=== PATIENT | male | born 1950 | race American Indian/Alaskan Native ===

== ENCOUNTER 2016-04-22 08:48 | Outpatient (CLI) | payer BC ==
[2016-04-22 09:13] LABS: Basophils % (Auto) 0.4 % (0.0-1.8); Hematocrit 37.6 % (35.5-45.6); Hemoglobin 12.4 gm/dl (11.8-15.2); Mean Corpuscular HGB Conc 33 % (32-34); Mean Corpuscular Hemoglobin 27 pg (28-32); Mean Corpuscular Volume 82 fl (84-94); Platelet Count 189 K/mm3 (140-440); White Blood Count 9.3 K/mm3 (4.5-11.0)
[2016-04-22 09:26] LABS: Alanine Aminotransferase 22 units/L (7-56); Albumin 4.3 g/dL (3.9-5); Albumin/Globulin Ratio 1.2 %; Alkaline Phosphatase 73 units/L (35-129); Anion Gap 17 mmol/L; BUN/Creatinine Ratio 8.57; Bilirubin,Total 0.4 mg/dL (0.1-1.2); Blood Urea Nitrogen 12 mg/dL (9-20); Calcium 8.9 mg/dL (8.4-10.2); Carbon Dioxide 27 mmol/L (22-30); Chloride 98.7 mmol/L (98-107); Cholesterol 127 mg/dL (50-199); Glucose 166 mg/dL (75-100); HDL Cholesterol 39 mg/dL (40-59); LDL Cholesterol,Direct 71 mg/dL (50-130); Potassium 4.2 mmol/L (3.6-5.0); Sodium 138 mmol/L (137-145); Total Protein 7.9 g/dL (6.3-8.2); Triglycerides 88 mg/dL (2-149)
== END 2016-04-22 08:49 | disposition home or self-care (01) ==
LOC: LAB 08:48
PROVIDERS: ATTEND Internal Medicine
DX: E11.9 Type 2 diabetes mellitus without complications (principal); I10 Essential (primary) hypertension; E78.2 Mixed hyperlipidemia
CPT/HCPCS: 36415; 80053; 80061; 82043; 83036; 85025

== ENCOUNTER 2017-02-24 14:53 | Inpatient (IN) | payer BC, MEDICARE ==
[2017-02-24 15:25] LABS: Basophils % (Auto) 0.3 % (0.0-1.8); Eosinophils % (Auto) 2.8 % (0.0-4.3); Hematocrit 39.8 % (35.5-45.6); Hemoglobin 12.9 gm/dl (11.8-15.2); Mean Corpuscular HGB Conc 32 % (32-34); Mean Corpuscular Hemoglobin 26 pg (28-32); Mean Corpuscular Volume 82 fl (84-94); Platelet Count 193 K/mm3 (140-440); Red Blood Count 4.88 M/mm3 (3.65-5.03); Red Cell Distribution Width 14.1 % (13.2-15.2); White Blood Count 9.1 K/mm3 (4.5-11.0)
[2017-02-24 15:45] LABS: Anion Gap 19 mmol/L; BUN/Creatinine Ratio 19; Blood Urea Nitrogen 23 mg/dL (9-20); Calcium 9.1 mg/dL (8.4-10.2); Carbon Dioxide 25 mmol/L (22-30); Chloride 93.1 mmol/L (98-107); Glucose 336 mg/dL (75-100); Potassium 4.1 mmol/L (3.6-5.0); Sodium 133 mmol/L (137-145)
--- NOTE | 2017-02-24 18:48 | Emergency Department Report ---
ED Chest Pain HPI - General Chief Complaint: Syncope Stated Complaint: ABNORMAL EKG Time Seen by Provider: 02/24/17 18:33 Source: patient Mode of arrival: Ambulatory Limitations: No Limitations - History of Present Illness Initial Comments: Patient initially with pre-syncope episode at work at which time EMS was called. When they arrived he felt well and did not go to ED. He then went to his PCP who did an EKG which showed new T waves in lateral leads. He was sent here subsequently. No current symptoms but has HTN, HL, DM. No history of tobacco, aspirin use. No FamHx with early CAD. -: This morning Onset: during exertion Pain Location: substernal Pain Radiation: none Severity: moderate Quality: tightness Consistency: now resolved Improves With: rest Worsens With: nothing Context: other (Recent poor sleep) re: diaphoresis Other Symptoms: syncope Treatments Prior to Arrival: none - Related Data Allergies Allergy/AdvReac Type Severity Reaction Status Date / Time No Known Allergies Allergy Unverified 02/24/17 15:08 Heart Score - HEART Score History: Slightly suspicious EKG: Non-specific Age: > 65 Risk factors: > 3 risk factors or hx of atherosclerotic disease Troponin: < normal limit HEART Score: 5 ED Review of Systems ROS: Stated complaint: ABNORMAL EKG Other details as noted in HPI Constitutional: malaise, weakness. denies: chills, fever Eyes: denies: eye pain, eye discharge, vision change ENT: denies: ear pain, throat pain Respiratory: denies: cough, shortness of breath, wheezing Cardiovascular: chest pain, syncope. denies: palpitations Endocrine: no symptoms reported Gastrointestinal: denies: abdominal pain, nausea, diarrhea Genitourinary: denies: urgency, dysuria Musculoskeletal: denies: back pain, joint swelling, arthralgia Skin: denies: rash, lesions Neurological: denies: headache, weakness, paresthesias Psychiatric: denies: anxiety, depression Hematological/Lymphatic: denies: easy bleeding, easy bruising ED Past Medical Hx - Past Medical History Hx Hypertension: Yes Hx Diabetes: Yes - Surgical History Past Surgical History?: No - Social History Smoking Status: Never Smoker Substance Use Type: None ED Physical Exam - General Limitations: No Limitations General appearance: alert, in no apparent distress - Head Head exam: Present: atraumatic, normocephalic - Eye Eye exam: Present: normal appearance - ENT ENT exam: Present: mucous membranes moist - Neck Neck exam: Present: normal inspection - Respiratory Respiratory exam: Present: normal lung sounds bilaterally. Absent: respiratory distress - Cardiovascular Cardiovascular Exam: Present: regular rate, normal rhythm. Absent: systolic murmur, diastolic murmur, rubs, gallop - GI/Abdominal GI/Abdominal exam: Present: soft, normal bowel sounds - Rectal Rectal exam: Present: deferred - Extremities Exam Extremities exam: Present: normal inspection - Back Exam Back exam: Present: normal inspection - Neurological Exam Neurological exam: Present: alert, oriented X3 - Psychiatric Psychiatric exam: Present: normal affect, normal mood - Skin Skin exam: Present: warm, dry, intact, normal color. Absent: rash ED Course Vital Signs 02/24/17 02/24/17 02/24/17 15:04 17:24 17:30 Temperature 99 F Pulse Rate 65 68 60 Respiratory 20 13 18 Rate Blood Pressure 136/76 137/85 O2 Sat by Pulse 99 99 Oximetry 02/24/17 02/24/17 02/24/17 17:45 18:00 18:15 Temperature Pulse Rate 59 L 52 L 61 Respiratory 18 13 19 Rate Blood Pressure 134/87 134/87 O2 Sat by Pulse Oximetry 02/24/17 02/24/17 02/24/17 18:31 18:45 19:00 Temperature Pulse Rate 70 58 L 59 L Respiratory 13 18 11 L Rate Blood Pressure 135/87 135/86 131/86 O2 Sat by Pulse Oximetry PATTI score - Patti Score Age > 65: (1) Yes Aspirin use within the Past 7 Days: (0) No 3 or more CAD Risk Factors: (1) Yes 2 or more Angina events in past 24 hrs: (0) No Known CAD with more than 50% Stenosis: (0) No Elevated Cardiac Markers: (0) No ST Deviation Greater than 0.5mm: (0) No PATTI Score: 2 ED Medical Decision Making - Lab Data Result diagrams: 02/24/17 15:15 02/24/17 15:10 Unremarkable labs - EKG Data -: EKG Interpreted by Dc EKG shows normal: sinus rhythm, axis, intervals, QRS complexes, ST-T waves (T wave inversion in I and aVL, V4- V6) Rate: normal - EKG Data Interpretation: other (Abnormal T-wave inversion in anteriorolateral leads.) - Medical Decision Making Patient with Heart Score of 5 with no history of stress test or heart cath. Will have admitted for ACS stratification. Critical care attestation.: If time is entered above; I have spent that time in minutes in the direct care of this critically ill patient, excluding procedure time. ED Disposition Clinical Impression: Abnormal EKG Syncope Qualifiers: Syncope type: unspecified Qualified Code(s): R55 - Syncope and collapse Disposition: OP ADMIT IP TO THIS HOSP Is pt being admited?: Yes Does the pt Need Aspirin: Yes Condition: Good Instructions: Syncope (ED) Referrals: SCOTTIE IRVIN MD [Staff Physician] - 3-5 Days Time of Disposition: 19:24
[2017-02-24] MEDS ORDERED: BABY ASPIRIN PO ONE (19:25)
[2017-02-24] MEDS ORDERED: TYLENOL PO PRN (20:39)
[2017-02-24] MEDS ORDERED: ZOFRAN IV PRN (20:39)
[2017-02-24] MEDS ORDERED: D50W (25GM) Vial IV PRN (20:44)
--- NOTE | 2017-02-24 21:47 | Cat Scan Report ---
FINAL REPORT PROCEDURE: CT HEAD/BRAIN WO CON TECHNIQUE: Computerized tomography of the head was performed without contrast material. HISTORY: SYNCOPE COMPARISON: No prior studies are available for comparison. FINDINGS: Brain: There is no evidence of intracranial hemorrhage. No parenchymal hemorrhage is seen. No mass lesions or mass effect is identified. No abnormal extra-axial fluid collections or masses are seen. Small old lacunar infarct visualized near the genu of the internal capsule on the left. There is some decreased density seen in the periventricular white matter without mass effect. This is fairly symmetric and does not exhibit any mass effect consistent with gliosis probably on the basis of microvascular disease or white matter changes of aging. Ventricles: The ventricles, sulcal pattern and fissures are prominent consistent with atrophy. Bones: No evidence of acute fracture. Paranasal sinuses: Visualized portions appear clear. Mastoid air cells: clear IMPRESSION: There is evidence of mild atrophy and gliosis. Small old lacunar infarct visualized genu left internal capsule. No acute intracranial abnormalities are identified.
--- NOTE | 2017-02-24 22:39 | History and Physical Report ---
CHIEF COMPLAINT: Syncopal attack. HISTORY OF PRESENTING ILLNESS: The patient is a 66-year-old male who said he was having some abdominal discomfort earlier on this morning associated with diaphoresis and then went to work and stood off and was completely unaware of what was going on around him and sweating profusely and the coworkers brought a seat and he sat down and did not remember what happened, then later on the patient said that he became aware of the environment. He denied history of chest pain. Denied history of fever or chills. Denied history of nausea or vomiting and also denied history of shortness of breath and was brought to the Emergency Room. PAST MEDICAL HISTORY: Pertinent for diabetes mellitus. Also, the patient has past history of hypertension and hypercholesterolemia. PAST SURGICAL HISTORY: Unremarkable. FAMILY HISTORY: Family history is noncontributory. SOCIAL HISTORY: The patient does not smoke, does not drink alcohol, and does not use illicit drugs. MEDICATIONS: The patient's home medications are not known at this time. ALLERGIES: There are no known drug allergies. REVIEW OF SYSTEMS: CONSTITUTIONAL: There is no fever, no chills. Diaphoresis is present. HEENT: There is no headache or sore throat. CARDIOVASCULAR: There is no chest pain or orthopnea. RESPIRATORY: There is no shortness of breath or cough. GASTROINTESTINAL: There is abdominal discomfort, but no nausea, no vomiting, no diarrhea or constipation. NEUROLOGICAL: Syncopal episode with period of unresponsiveness noted. MUSCULOSKELETAL: There is no joint pain or swelling. DERMATOLOGICAL: There is no skin rash or itching. GENITOURINARY: There is no dysuria, hematuria, or flank pain. Rest of system review is normal. PHYSICAL EXAMINATION: GENERAL: At the time of exam, the patient was found to be alert, oriented x 3 and not in acute distress. VITAL SIGNS: Shows normal temperature with normal pulse , respirations 11, blood pressure 131/86, and normal O2 sat on room air. HEENT: Showed pupils to be equal, round, reactive to light and accommodating. Extraocular muscles are intact. NECK: Supple with no JVD or carotid bruits. CARDIOVASCULAR: Showed normal first and second heart sounds with no gallops or murmurs. RESPIRATORY: Showed good air entry on both sides of the lungs with no abnormal breath sounds. GASTROINTESTINAL: Shows abdomen to be full, soft, nontender with no organomegaly or rigidity. NEUROLOGICAL: Neuro exam sows no focal deficits. MUSCULOSKELETAL: Show no joint swelling or tenderness. DERMATOLOGICAL: Shows no skin rash. GENITOURINARY: Showing no costovertebral angle tenderness. PERTINENT LABORATORY DATA AND IMAGING STUDIES: The patient has CBC done that shows normal white count, normal hemoglobin, normal hematocrit with unremarkable CBC differential. The patient's chemistry shows slight decrease in sodium of 133, normal potassium level, low chloride level of 93.1, slightly elevated BUN of 23 with normal creatinine, and normal GFR of greater than 60. The patient's blood glucose was elevated with a value of 336. Cardiac enzymes showed 2 levels of troponin to be normal. IMAGING STUDIES: No imaging studies were done on the patient. DIAGNOSES: 1. Syncope. 2. Hyperglycemia. PLAN: The patient will be admitted to medical floor on telemetry. We will have cardiac enzymes checked q.6h. x 1 more level. The patient will have stat CT of the head without contrast done this night and the result will be called to the hospitalist pulmonologist. The patient will have Lexiscan stress test done in the morning and will be n.p.o. for the stress test to be done in the morning of 02/25/2017. Also, the patient will have bilateral carotid Doppler done in the morning and will be on oxygen by nasal cannula at 2 liters per minute. The patient will also be on IV Zofran 4 mg every 6 hours for nausea and vomiting, and be on aspirin after the result of the CT scan is known. The patient will have Accu-Chek before meals and at bedtime followed by low-dose sliding scale using regular insulin coverage. Please note that the patient's EKG showed an inverted T-wave in the lateral and the anterior leads according to the primary care doctor's report. The EKG was done when the patient visited the primary care doctor for the syncopal attack. Further management of the patient's condition will be dependent on the result of the CT scan of the head, the carotid Doppler and the stress test that will be done tomorrow. JOB# [id number] [facility]/DRISS GALDAMEZ
[2017-02-25 02:20] LABS: Creatine Kinase 104 units/L (55-170)
[2017-02-25 02:37] LABS: Creatine Kinase MB 1.2 ng/mL (0.0-4.0)
[2017-02-25] MEDS ORDERED: SODIUM CHLORIDE FLUSH SYRINGE 10 ML IV PRN (11:18)
--- NOTE | 2017-02-25 11:18 | Progress Note ---
Assessment and Plan Assessment and plan: Presyncope. Follow-up carotid ultrasound and Echocardiogram. Abnormal EKG. Follow-up echocardiogram. Order stress thallium. Cardiology consultation. Diabetes mellitus type 2. Continue Accu-Cheks and sliding scale insulin History Interval history: patient denies chest pain or shortness of breath Hospitalist Physical - Constitutional Vitals: Temp Pulse Resp BP Pulse Ox 98.2 F 71 18 125/65 97 02/25/17 08:12 02/25/17 08:12 02/25/17 08:12 02/25/17 08:12 02/25/17 08:12 General appearance: Present: no acute distress, well-nourished - EENT Eyes: Present: PERRL, EOM intact ENT: hearing intact, clear oral mucosa, dentition normal - Neck Neck: Present: supple, normal ROM - Respiratory Respiratory effort: normal Respiratory: bilateral: CTA - Cardiovascular Rhythm: regular Heart Sounds: Present: S1 & S2. Absent: gallop, rub - Extremities Extremities: no ischemia, No edema, Full ROM - Abdominal General gastrointestinal: soft, non-tender, non-distended, normal bowel sounds - Integumentary Integumentary: Present: clear, warm, dry - Neurologic Neurologic: CNII-XII intact, moves all extremities Results - Labs CBC & Chem 7: 02/24/17 15:15 02/24/17 15:10 Labs: Laboratory Last Values WBC 9.1 K/mm3 (4.5-11.0) 02/24/17 15:15 RBC 4.88 M/mm3 (3.65-5.03) 02/24/17 15:15 Hgb 12.9 gm/dl (11.8-15.2) 02/24/17 15:15 Hct 39.8 % (35.5-45.6) 02/24/17 15:15 MCV 82 fl (84-94) L 02/24/17 15:15 MCH 26 pg (28-32) L 02/24/17 15:15 MCHC 32 % (32-34) 02/24/17 15:15 RDW 14.1 % (13.2-15.2) 02/24/17 15:15 Plt Count 193 K/mm3 (140-440) 02/24/17 15:15 Lymph % (Auto) 30.9 % (13.4-35.0) 02/24/17 15:15 [place] % (Auto) 4.3 % (0.0-7.3) 02/24/17 15:15 Eos % (Auto) 2.8 % (0.0-4.3) 02/24/17 15:15 Baso % (Auto) 0.3 % (0.0-1.8) 02/24/17 15:15 Lymph # 2.8 K/mm3 (1.2-5.4) 02/24/17 15:15 [place] # 0.4 K/mm3 (0.0-0.8) 02/24/17 15:15 Eos # 0.3 K/mm3 (0.0-0.4) 02/24/17 15:15 Baso # 0.0 K/mm3 (0.0-0.1) 02/24/17 15:15 Seg Neutrophils % 61.7 % (40.0-70.0) 02/24/17 15:15 Seg Neutrophils # 5.6 K/mm3 (1.8-7.7) 02/24/17 15:15 Sodium 133 mmol/L (137-145) L 02/24/17 15:10 Potassium 4.1 mmol/L (3.6-5.0) 02/24/17 15:10 Chloride 93.1 mmol/L (98-107) L 02/24/17 15:10 Carbon Dioxide 25 mmol/L (22-30) 02/24/17 15:10 Anion Gap 19 mmol/L 02/24/17 15:10 BUN 23 mg/dL (9-20) H 02/24/17 15:10 Creatinine 1.2 mg/dL (0.8-1.5) 02/24/17 15:10 Estimated GFR > 60 ml/min 02/24/17 15:10 BUN/Creatinine Ratio 19 % 02/24/17 15:10 Glucose 336 mg/dL (75-100) H 02/24/17 15:10 POC Glucose 277 (70-105) H 02/25/17 00:08 Calcium 9.1 mg/dL (8.4-10.2) 02/24/17 15:10 Total Creatine Kinase 104 units/L (55-170) 02/25/17 01:32 CK-MB (CK-2) 1.2 ng/mL (0.0-4.0) 02/25/17 01:32 CK-MB (CK-2) Rel Index 1.1 (0-4) 02/25/17 01:32 Troponin T < 0.010 ng/mL (0.00-0.029) 02/25/17 01:32
[2017-02-25 13:42] LABS: Basophils % (Auto) 0.3 % (0.0-1.8); Eosinophils % (Auto) 3.8 % (0.0-4.3); Hematocrit 39.8 % (35.5-45.6); Hemoglobin 13.2 gm/dl (11.8-15.2); Mean Corpuscular HGB Conc 33 % (32-34); Mean Corpuscular Hemoglobin 28 pg (28-32); Mean Corpuscular Volume 83 fl (84-94); Platelet Count 193 K/mm3 (140-440); Red Blood Count 4.81 M/mm3 (3.65-5.03); Red Cell Distribution Width 14.2 % (13.2-15.2); White Blood Count 7.6 K/mm3 (4.5-11.0)
[2017-02-25 13:55] LABS: Anion Gap 19 mmol/L; BUN/Creatinine Ratio 20; Blood Urea Nitrogen 22 mg/dL (9-20); Calcium 9.1 mg/dL (8.4-10.2); Carbon Dioxide 25 mmol/L (22-30); Chloride 94.1 mmol/L (98-107); Glucose 288 mg/dL (75-100); Potassium 4.1 mmol/L (3.6-5.0); Sodium 134 mmol/L (137-145)
--- NOTE | 2017-02-25 14:59 | Progress Note ---
Assessment and Plan - Patient Problems (1) Atrial flutter Current Visit: Yes Status: Acute Plan to address problem: Patient had atrial flutter associated with multiple metabolic abnormalities of diabetic ketoacidosis. We'll continue conservative management. Subjective Date of service: 02/25/17 Interval history: Patient looks and feels well, comfortable in no acute distress. She remains in a stable sinus rhythm, stable hemodynamics. Objective Vital Signs Temp Pulse Resp BP Pulse Ox 02/25/17 08:12 98.2 F 71 18 125/65 97 02/25/17 05:02 98.3 F 61 17 127/74 98 02/24/17 23:46 98.3 F 67 20 128/80 97 02/24/17 22:00 64 17 128/80 02/24/17 21:45 66 16 133/86 02/24/17 21:30 65 22 140/83 02/24/17 21:15 70 13 146/86 02/24/17 21:11 62 142/95 02/24/17 20:45 76 14 142/95 02/24/17 20:31 67 19 152/98 02/24/17 20:15 61 17 135/93 02/24/17 20:00 62 16 135/96 02/24/17 19:45 66 20 139/93 02/24/17 19:30 58 L 16 136/86 02/24/17 19:15 58 L 16 132/88 02/24/17 19:00 59 L 11 L 131/86 02/24/17 18:45 58 L 18 135/86 02/24/17 18:31 70 13 135/87 02/24/17 18:15 61 19 02/24/17 18:00 52 L 13 134/87 02/24/17 17:45 59 L 18 134/87 02/24/17 17:30 60 18 137/85 99 02/24/17 17:24 68 13 02/24/17 15:04 99 F 65 20 136/76 99 - Physical Examination General: Appears Well, No Apparent Distress HEENT: Positive: PERRL Neck: Positive: neck supple Cardiac: Positive: Reg Rate and Rhythm Lungs: Positive: clear to auscultation Neuro: Positive: Grossly Intact Abdomen: Positive: Soft Skin: Positive: Clear Extremities: Absent: edema - Labs and Meds Cardiac Enzymes 02/25/17 Range/Units 01:32 CK-MB (CK-2) 1.2 (0.0-4.0) ng/mL CBC 02/24/17 02/25/17 Range/Units 15:15 13:02 WBC 9.1 7.6 (4.5-11.0) K/mm3 RBC 4.88 4.81 (3.65-5.03) M/mm3 Hgb 12.9 13.2 (11.8-15.2) gm/dl Hct 39.8 39.8 (35.5-45.6) % Plt Count 193 193 (140-440) K/mm3 Lymph # 2.8 2.5 (1.2-5.4) K/mm3 [place] # 0.4 0.4 (0.0-0.8) K/mm3 Eos # 0.3 0.3 (0.0-0.4) K/mm3 Baso # 0.0 0.0 (0.0-0.1) K/mm3 Comprehensive Metabolic Panel 02/24/17 02/25/17 Range/Units 15:10 13:02 Sodium 133 L 134 L (137-145) mmol/L Potassium 4.1 4.1 (3.6-5.0) mmol/L Chloride 93.1 L 94.1 L (98-107) mmol/L Carbon Dioxide 25 25 (22-30) mmol/L BUN 23 H 22 H (9-20) mg/dL Creatinine 1.2 1.1 (0.8-1.5) mg/dL Glucose 336 H 288 H (75-100) mg/dL Calcium 9.1 9.1 (8.4-10.2) mg/dL
--- NOTE | 2017-02-25 15:04 | Consultation ---
History of Present Illness Consult date: 02/25/17 Consult reason: other (abnormal EKG) History of present illness: The patient is a 66-year-old male with a history of hypertension and diabetes, no previous cardiac history. He was admitted to the hospital after a near syncopal episode. He states that he initially felt some abdominal pain and queasiness, following which there was some lightheadedness and profuse diaphoresis. After he sat down for a while his symptoms completely subsided and have not recurred. There was no syncope. There was no chest pain, no shortness of breath and no palpitations. During telemetry monitoring the hospital, there has been no significant dysrhythmias. Cardiology consultation was requested for abnormal ECG. ECG is normal sinus rhythm, with left ventricular hypertrophy and mild repolarization abnormalities of LVH. No acute ischemia or infarction on EKG. Today, he underwent a stress test with thallium ordered by the medical service. He exercised for 8 minutes of a Angel protocol, no chest pain and no ECG changes. Thallium images were normal. Past History Past Medical History: diabetes, hypertension Medications and Allergies Allergies Allergy/AdvReac Type Severity Reaction Status Date / Time No Known Allergies Allergy Unverified 02/24/17 15:08 Home Medications Medication Instructions Recorded Confirmed Last Taken Type AtorvaSTATin [Lipitor] 20 mg PO QDAY 02/24/17 02/24/17 02/24/17 History Carvedilol [Coreg] 6.25 mg PO BID 02/24/17 02/24/17 02/24/17 History am Losartan [Cozaar] 100 mg PO QDAY 02/24/17 02/24/17 02/24/17 History amLODIPine [Norvasc] 10 mg PO QDAY 02/24/17 02/24/17 02/24/17 History glipiZIDE [Glipizide] 5 mg PO BIDAC 02/24/17 02/24/17 02/24/17 History hydrALAZINE [Apresoline TAB] 50 mg PO BID 02/24/17 02/24/17 02/24/17 History am Active Meds: Active Medications Acetaminophen (Tylenol) 650 mg PO Q4H PRN PRN Reason: For Pain/Fever/Headache Dextrose (D50w (25gm) Vial) 25 gm IV PRN PRN PRN Reason: Hypoglycemia Insulin Human Regular (Novolin R) 0 units SUB-Q AC KIM PRN Reason: Protocol Last Admin: 02/25/17 07:30 Dose: Not Given Insulin Human Regular (Novolin R) 0 units SUB-Q QHS KIM PRN Reason: Protocol Last Admin: 02/25/17 00:18 Dose: 3 units Ondansetron HCl (Zofran) 4 mg IV Q6H PRN PRN Reason: Nausea And Vomiting Sodium Chloride (Sodium Chloride Flush Syringe 10 Ml) 10 ml IV PRN PRN PRN Reason: LINE FLUSH Review of Systems Cardiovascular: syncope, no chest pain, no orthopnea, no palpitations, no rapid/ irregular heart beat, no edema, no lightheadedness, no shortness of breath Physical Examination Vital Signs Temp Pulse Resp BP Pulse Ox 99 F 65 20 136/76 99 02/24/17 15:04 02/24/17 15:04 02/24/17 15:04 02/24/17 15:04 02/24/17 15:04 General appearance: no acute distress HEENT: Positive: PERRL Neck: Positive: neck supple Cardiac: Positive: Reg Rate and Rhythm Lungs: Positive: Decreased Breath Sounds Neuro: Positive: Grossly Intact Abdomen: Positive: Soft Male genitourinary: Positive: deferred Skin: Positive: Clear Extremities: Absent: edema Results 02/25/17 13:02 02/25/17 13:02 Cardiac Enzymes 02/25/17 Range/Units 01:32 CK-MB (CK-2) 1.2 (0.0-4.0) ng/mL CBC 02/24/17 02/25/17 Range/Units 15:15 13:02 WBC 9.1 7.6 (4.5-11.0) K/mm3 RBC 4.88 4.81 (3.65-5.03) M/mm3 Hgb 12.9 13.2 (11.8-15.2) gm/dl Hct 39.8 39.8 (35.5-45.6) % Plt Count 193 193 (140-440) K/mm3 Lymph # 2.8 2.5 (1.2-5.4) K/mm3 [place] # 0.4 0.4 (0.0-0.8) K/mm3 Eos # 0.3 0.3 (0.0-0.4) K/mm3 Baso # 0.0 0.0 (0.0-0.1) K/mm3 Comprehensive Metabolic Panel 02/24/17 02/25/17 Range/Units 15:10 13:02 Sodium 133 L 134 L (137-145) mmol/L Potassium 4.1 4.1 (3.6-5.0) mmol/L Chloride 93.1 L 94.1 L (98-107) mmol/L Carbon Dioxide 25 25 (22-30) mmol/L BUN 23 H 22 H (9-20) mg/dL Creatinine 1.2 1.1 (0.8-1.5) mg/dL Glucose 336 H 288 H (75-100) mg/dL Calcium 9.1 9.1 (8.4-10.2) mg/dL EKG interpretations - Telemetry EKG Rhythm: Sinus Rhythm Assessment and Plan - Patient Problems (1) Syncope Current Visit: Yes Status: Acute Qualifiers: Syncope type: unspecified Qualified Code(s): R55 - Syncope and collapse Plan to address problem: The patient presented with presyncope, which appears historically to be likely vasovagal. (2) Abnormal EKG Current Visit: Yes Status: Acute Plan to address problem: The EKG abnormalities are consistent with left ventricular hypertrophy problem is chronic hypertension. A thallium stress test today was normal, no further ischemic cardiac workup is indicated.
--- NOTE | 2017-02-26 11:05 | Progress Note ---
Assessment and Plan Near syncope Normal stress test Normal LVEF, mild LVH by echo Systemic Hypertension Type II DM Abnormal ECG Recommendations: No further cardiac work-up needed May go home cardiac renae Subjective Date of service: 02/26/17 Principal diagnosis: Near syncope Interval history: Patient denies chest pain or shortness of breath this morning Objective Vital Signs Temp Pulse Resp BP BP Pulse Ox 02/26/17 10:00 64 02/26/17 08:50 97 02/26/17 04:54 98.8 F 64 20 131/80 97 02/26/17 01:32 98.3 F 67 20 127/78 98 02/26/17 00:55 66 98 02/25/17 22:00 20 02/25/17 21:45 98.3 F 63 18 120/79 98 02/25/17 21:03 60 02/25/17 21:00 65 98 02/25/17 17:31 98.3 F 61 18 135/85 98 02/25/17 13:38 97.6 F 61 18 133/77 98 - Physical Examination General: Appears Well, No Apparent Distress HEENT: Positive: PERRL Neck: Positive: neck supple Cardiac: Positive: Reg Rate and Rhythm Lungs: Positive: Normal Exam Neuro: Positive: Grossly Intact Abdomen: Positive: Soft Skin: Positive: Clear Extremities: Absent: edema - Labs and Meds CBC 02/25/17 Range/Units 13:02 WBC 7.6 (4.5-11.0) K/mm3 RBC 4.81 (3.65-5.03) M/mm3 Hgb 13.2 (11.8-15.2) gm/dl Hct 39.8 (35.5-45.6) % Plt Count 193 (140-440) K/mm3 Lymph # 2.5 (1.2-5.4) K/mm3 [place] # 0.4 (0.0-0.8) K/mm3 Eos # 0.3 (0.0-0.4) K/mm3 Baso # 0.0 (0.0-0.1) K/mm3 Comprehensive Metabolic Panel 02/25/17 Range/Units 13:02 Sodium 134 L (137-145) mmol/L Potassium 4.1 (3.6-5.0) mmol/L Chloride 94.1 L (98-107) mmol/L Carbon Dioxide 25 (22-30) mmol/L BUN 22 H (9-20) mg/dL Creatinine 1.1 (0.8-1.5) mg/dL Glucose 288 H (75-100) mg/dL Calcium 9.1 (8.4-10.2) mg/dL
--- NOTE | 2017-02-26 11:38 | Discharge Summary ---
Providers - Providers Date of Admission: 02/24/17 20:33 Date of discharge: 02/26/17 Attending physician: VEDA HADDAD 02/25/17 Consult to Cardiac Rehabilitation [CONS] Routine Reason For Exam: Phase I 02/25/17 11:18 Consult to Cardiology [CONS] Routine Consulting Provider: LEXIS REYNOLDS Reason For Exam: abnormal EKG Primary care physician: [employer] Hospitalization Condition: Good Hospital course: Patient is 66 yo presented with episode of syncope at work. CT Head was unremarkable. He was admitted for further evaluation. Cardiology was consulted and he was evaluated. No more syncope after admitted. Echocardiogram showed EF 55-60%. Stress test was also done and was negative. He was subsequently discharged home.Syncope due to vasovagal process. Total time spent on discharge, 33 mins Disposition: TO HOME OR SELFCARE - Discharge Diagnoses (1) Vasovagal syncope Status: Acute (2) HTN (hypertension), benign Status: Chronic (3) Diabetes mellitus type 2, uncontrolled Status: Chronic Qualifiers: Diabetes mellitus complication status: with hyperglycemia Core Measure Documentation - Palliative Care Palliative Care/ Comfort Measures: Not Applicable - Core Measures Any of the following diagnoses?: none Exam - Constitutional Vitals: Temp Pulse Resp BP Pulse Ox 98.8 F 64 20 131/80 97 02/26/17 04:54 02/26/17 10:00 02/26/17 04:54 02/26/17 04:54 02/26/17 08:50 Plan Activity: no restrictions Diet: low fat, low cholesterol, low salt Additional Instructions: 1.Follow up with PCP, Dr. Ordoñez in 3-5 days Follow up with: SCOTTIE IRVIN MD [Staff Physician] - 3-5 Days
[2017-02-26 12:46] VITALS: BP 146/84
--- NOTE | 2017-02-27 01:35 | Treadmill Report ---
THALLIUM STRESS TEST REPORT LEFT VENTRICLE: Left ventricular chamber size is within normal spread. Perfusion study demonstrates homogenous uptake of the tracer in all segments, no significant perfusion defects identified. Gated analysis demonstrates normal left ventricular systolic function, ejection fraction of 68%. CONCLUSION: Normal myocardial perfusion study. JOB# [id number] CA/NTS
--- NOTE | 2017-03-04 08:04 | Vascular Lab Report ---
CAROTID DUPLEX STUDY: RIGHT PSVEDV CCA PROX:[id number] CCA DIST:[id number] ICA PROX:5717 ICA MID:5720 ICA DIST:6824 ECA: 9511 VERT: 56 14 LEFT PSVEDV CCA PROX:[id number] CCA DIST:8114 ICA PROX:5618 ICA MID:7021 ICA DIST:6119 ECA: 865 VERT: 66 8 REASON FOR EXAM: Carotid artery stenosis/syncope. COMMENTS ON THE RIGHT: Doppler frequency analysis is consistent with 16 to 49 percent diameter reduction of the internal carotid artery. Minimal amount of plaque is seen. The common carotid artery is patent. The external carotid artery is patent. The vertebral artery has antegrade flow. COMMENTS ON THE LEFT: Doppler frequency analysis is consistent with 16 to 49 percent diameter reduction of the internal carotid artery. Minimal amount of plaque is seen. The common carotid artery is patent. The external carotid artery is patent. The vertebral artery has antegrade flow. IMPRESSION: Less than 50% diameter reduction in the internal carotid arteries bilaterally. Consider repeat carotid artery duplex in 12 months.
== END 2017-02-26 13:26 | disposition home or self-care (01) | DRG 312 ==
LOC: ED 14:53 → 4A 20:33
PROVIDERS: ADMIT Internal Medicine; ATTEND Internal Medicine
DX: R55 Syncope and collapse (principal); I10 Essential (primary) hypertension; I51.7 Cardiomegaly; E11.65 Type 2 diabetes mellitus with hyperglycemia; Z79.899 Other long term (current) drug therapy
CPT/HCPCS: 36415; 70450; 78452; 80048; 82550; 82553; 82962; 84484; 85025; 93005; 93010; 93017; 93306; 93880; 99285; A9502; J1815